=== PATIENT | female | born 2000 | race Caucasian/White ===

== ENCOUNTER 2020-10-20 13:21 | Emergency (ER) | payer OTHER ==
--- NOTE | 2020-10-20 13:44 | ED Physician Documentation ---
History of Present Illness - Stated complaint Stated Complaint: 12 FT FALL - Chief complaint Chief Complaint: Trauma Hd/Nk - History obtained from History obtained from: Patient, EMS - History of Present Illness Timing: Today Pain level max: 2 Pain level now: 1 - Additonal information Additional information: fall off of a jet today at work. Struck head on a whiteboard and briefly lost consciousness. Mild nausea. No vomiting. Initially had neck pain. This is improving now. No back pain. Denies any possibility of . No dental injury. No other injuries. Patient was placed in a c-collar and on a backboard with EMS. Patient initially was reported as a GCS 14 with EMS. She has a GCS 15 upon arrival. Review of Systems Ten Systems: 10 systems reviewed and negative Constitutional: denies: Fever, Chills Nose: denies: Rhinorrhea / runny nose, Congestion Respiratory: denies: Cough GI: reports: Nausea. denies: Vomiting, Diarrhea : denies: Dysuria, Frequency, Hesitancy, Now EGA Skin: denies: Rash Musculoskeletal: denies: Back pain, Extremity pain Neurologic: denies: Focal weakness, Numbness, Confused PD PAST MEDICAL HISTORY - Past Medical History Past Medical History: No - Present Medications Home Medications: Ambulatory Orders Medication Instructions Recorded Confirmed Ondansetron Odt [Zofran] 4 mg TL Q6H PRN #10 tablet 10/20/20 - Allergies Allergies/Adverse Reactions: Allergies Allergy/AdvReac Type Severity Reaction Status Date / Time No Known Drug Allergies Allergy Verified 10/20/20 13:29 - Living Situation Living Arrangement: reports: At home - Social History Does the pt have substance abuse?: No - Family History Family history: reports: Non contributory PD ED PE NORMAL - Vitals Vital signs reviewed: Yes - General General: Alert and oriented X 3, No acute distress, Well developed/nourished - HEENT HEENT: Atraumatic (Atraumatic other than a small abrasion to the left cheek. No bony tenderness over the face or skull. 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, No motor deficit, No sensory deficit, Normal speech Eye Opening: Spontaneous Motor: Obeys Commands Verbal: Oriented GCS Score: 15 - Psych Psych: Normal mood, Normal affect Results - Vitals Vitals: Vital Signs - 24 hr 10/20/20 10/20/20 10/20/20 13:21 13:30 14:00 Temperature 36.8 C Heart Rate 62 65 66 Respiratory 16 16 16 Rate Blood Pressure 125/85 H 125/85 H 125/75 O2 Saturation 100 100 98 10/20/20 15:00 Temperature Heart Rate 63 Respiratory 16 Rate Blood Pressure 114/76 O2 Saturation 100 Oxygen O2 Source Room air - Rads (name of study) head CT Radiology: Prelim report reviewed, EMP read contemporaneously, See rad report ( no acute abnormality) c-spine CT Radiology: Prelim report reviewed, EMP read contemporaneously, See rad report (no acute abnormality) PD MEDICAL DECISION MAKING - ED course Complexity details: reviewed results, re-evaluated patient, considered differential, d/w patient ED course: Patient is a 20-year-old female who presents to the emergency department after a fall off of a jet today while at work. She had a brief loss of consciousness and has had nausea. Negative head CT and cervical spine CT. Tolerating p.o. without difficulty and ambulating without difficulty. No facial bone tenderness. Normal dental exam and intraoral exam. No lacerations. Head injury instructions given at bedside. Patient counseled regarding signs and symptoms for which I believe and urgent re-evaluation would be necessary. Patient with good understanding of and agreement to plan and is comfortable going home at this time This document was made in part using voice recognition software. While efforts are made to proofread this document, sound alike and grammatical errors may occur. Departure - Departure Disposition: 01 Home, Self Care Clinical Impression: Concussion Qualifiers: Encounter type: initial encounter Loss of consciousness presence/duration: with LOC of 30 min or less Qualified Code(s): S06.0X1A - Concussion with loss of consciousness of 30 minutes or less, initial encounter Facial abrasion Qualifiers: Encounter type: initial encounter Qualified Code(s): S00.81XA - Abrasion of other part of head, initial encounter Condition: Good Instructions: ED Concussion Follow-Up: WESLEY WEST MD [Primary Care Provider] - Within 3 Days Prescriptions: Ondansetron Odt [Zofran] 4 mg TL Q6H PRN #10 tablet PRN Reason: Nausea / Vomiting Comments: Use the medications as prescribed. Follow-up with your doctor for further care. Return if you worsen. Your head CT and cervical spine CT did not show any acute abnormalities today. You can use Motrin or Tylenol as needed for pain. Forms: Activity restrictions Discharge Date/Time: 10/20/20 15:18
[2020-10-20] MEDS ORDERED: ONDANSETRON ODT 4 MG TABLET TL STA (13:46)
--- NOTE | 2020-10-20 14:09 | CT Report ---
PROCEDURE: HEAD WO INDICATIONS: fall, head trauma, neck trauma TECHNIQUE: Noncontrast 4.5 mm thick angled axial sections acquired from the foramen magnum to the vertex. For r adiation dose reduction, the following was used: automated exposure control, adjustment of mA and/or kV according to patient size. COMPARISON: None. FINDINGS: Image quality: Excellent. CSF spaces: Basal cisterns are patent. No extra-axial fluid collections. Ventricles are normal in size and shape. Brain: No midline shift. No intracranial masses or hemorrhage. Gonzalez-white matter interface is norm al. Skull and face: Calvarium and visualized facial bones are intact, without suspicious lesions. Sinuses: Visualized sinuses and mastoids are clear. IMPRESSION: No acute intracranial disease process. Reviewed by: Gloria Summers MD, PhD on 10/20/2020 2:08 PM PDT Approved by: Gloria Summers MD, PhD on 10/20/2020 2:08 PM PDT Station ID: [id number]
--- NOTE | 2020-10-20 14:17 | CT Report ---
PROCEDURE: CERVICAL SPINE WO INDICATIONS: fall, head trauma, neck trauma TECHNIQUE: Noncontrast 3 mm thick sections acquired from the skull base to the T4 level. Sagittal and coronal r eformats were then constructed. For radiation dose reduction, the following was used: automated exp osure control, adjustment of mA and/or kV according to patient size. COMPARISON: None. FINDINGS: Image quality: Excellent. Bones: No fractures or dislocations. Visualized superior ribs are intact. Soft tissues: Prevertebral soft tissues are normal in thickness. No paravertebral hematomas. No ap ical pneumothoraces. IMPRESSION: No fracture. No acute osseous lesion. If there is continued clinical concern for pathology, then MRI should be considered for further evaluation. Reviewed by: Gloria Summers MD, PhD on 10/20/2020 2:16 PM PDT Approved by: Gloria Summers MD, PhD on 10/20/2020 2:16 PM PDT Station ID: [id number]
[2020-10-20 15:18] VITALS: BP 114/76
== END 2020-10-20 15:18 | disposition home or self-care (01) ==
LOC: ED 13:21
DX: S06.0X1A Concussion with loss of consciousness of 30 minutes or less, initial encounter (principal); S00.81XA Abrasion of other part of head, initial encounter; W17.89XA Other fall from one level to another, initial encounter; Y99.1 Military activity
CPT/HCPCS: 70450; 72125; 99284; Q0162